=== PATIENT | female | born 1990 | race Caucasian/White ===

== ENCOUNTER 2017-03-25 16:18 | Emergency (ER) | payer MEDICAID, OTHER ==
[~2017-03-25] VITALS: Ht 157.5 cm; Wt 48.0 kg
[2017-03-25] MEDS ORDERED: ALBU0.63 NEB (16:31)
[2017-03-25] MEDS ORDERED: FLUT1DIS IH (16:31)
[2017-03-25] MEDS ORDERED: HCTZ (16:31)
[2017-03-25] MEDS ORDERED: LISI2.5T PO (16:31)
[2017-03-25] MEDS ORDERED: LORazepam 1MG TABLET ONE (16:56)
[2017-03-25] MEDS ORDERED: LORazepam 1MG TABLET PO ONE (17:00)
[2017-03-25 18:53] VITALS: BP 156/111
== END 2017-03-25 18:57 | disposition home or self-care (01) ==
LOC: ED 17:45
DX: I10 Essential (primary) hypertension (principal); F15.10 Other stimulant abuse, uncomplicated; G43.909 Migraine, unspecified, not intractable, without status migrainosus
CPT/HCPCS: 36415; 80047; 84484; 93005; 99285

== ENCOUNTER 2017-05-20 20:55 | Emergency (ER) | payer MEDICAID ==
[~2017-05-20 20:55] MED LIST: ALBU0.63 NEB; FLUT1DIS IH; HCTZ; LISI2.5T PO
[2017-05-20] MEDS ORDERED: CAPTOPRIL 50 MG TABLET PO ONE (22:00)
[2017-05-20] MEDS ORDERED: LABETALOL 5MG/ML, 20ML IVPush ONE (22:00)
[2017-05-20 22:39] VITALS: BP 191/119
== END 2017-05-20 22:43 | disposition home or self-care (01) ==
LOC: ED 20:57
DX: I10 Essential (primary) hypertension (principal); F15.20 Other stimulant dependence, uncomplicated; Z91.14 Patient's other noncompliance with medication regimen; G89.29 Other chronic pain; M54.9 Dorsalgia, unspecified; F17.210 Nicotine dependence, cigarettes, uncomplicated; G43.909 Migraine, unspecified, not intractable, without status migrainosus
CPT/HCPCS: 36415; 80047; 93005; 99285

== ENCOUNTER 2017-07-18 16:49 | Inpatient (IN) | payer MEDICAID ==
[~2017-07-18] VITALS: Ht 157.5 cm; Wt 51.5 kg
[2017-07-18] MEDS ORDERED: SODIUM CHLORIDE FLUSH 10ML SYR IVF ONE (18:00)
[2017-07-18] MEDS ORDERED: SODIUM CHLORIDE 0.9% 1,000ML IVBOLUS ONE ×2 (18:00→19:00)
[2017-07-18] MEDS ORDERED: KETOROLAC 30 MG/1 ML IVPush ONE (18:00)
[2017-07-18] MEDS ORDERED: KETOROLAC 30 MG/1 ML ONE ×2 (18:00→20:17)
[2017-07-18 18:21] LABS: HEMATOCRIT 36.6 % (34.6-47.8); HEMOGLOBIN 12.4 g/dL (11.7-16.4); WHITE BLOOD COUNT 19.2 x10^3/uL (3.4-10)
[2017-07-18 18:31] LABS: BLOOD UREA NITROGEN 8 mg/dL (7-18)
[2017-07-18 19:12] LABS: DIFF TOTAL CELLS COUNTED 100 CELL DIFF
[2017-07-18 19:14] LABS: VERIFY COUNTS? YES
[2017-07-18] MEDS ORDERED: LEVOFLOXACIN/PMX 750MG/150ML 150 ML IV ONE (19:30)
[2017-07-18] MEDS ORDERED: LEVOFLOXACIN/PMX 750MG/150ML 150 ML ONE (19:31)
[2017-07-18] MEDS ORDERED: GUAIFENESIN/DM 200-20MG, 10ML UDC PO PRN (20:00)
[2017-07-18] MEDS ORDERED: ACETAMINOPHEN 325 MG TABLET PO PRN (20:00)
[2017-07-18] MEDS ORDERED: BISACODYL 10 MG SUPP PR PRN (20:00)
[2017-07-18] MEDS ORDERED: POLYETHYLENE GLYCOL 17 GM PACKET PO PRN (20:00)
[2017-07-18] MEDS ORDERED: LEVOFLOXACIN/PMX 750MG/150ML 150 ML IV SCH (20:00)
[2017-07-18] MEDS ORDERED: ONDANSETRON 2MG/ML, 2ML IVPush PRN (20:00)
[2017-07-18 20:15] LABS: HIV 1&2 ANTIBODY SCREEN Nonreactive (Nonreactive); HIV-1 p24 ANTIGEN Nonreactive (Nonreactive)
[2017-07-18] MEDS ORDERED: NICOTINE 21 MG/24 HR PATCH.TD24 ONE (20:17)
[2017-07-18] MEDS: KETOROLAC 30 MG/1 ML IVPush SCH (20:20)
[2017-07-18] MEDS: NICOTINE 14MG/24 HR PATCH.TD24 TD SCH (20:20)
[2017-07-18] MEDS: NS + 20MEQ KCL 1,000 ML IV SCH (22:20)
[2017-07-18] MEDS: HEPARIN 5,000 UNITS/ML, 1ML SQ SCH (22:24)
[2017-07-18 22:58] VITALS: BP 132/89
[2017-07-19] VITALS (9 sets, daily range): BP systolic 139–170; BP diastolic 92–127
[2017-07-19 01:25] LABS: RAPID INFLUENZA A Negative (Negative); RAPID INFLUENZA B Negative (Negative)
[2017-07-19 02:18] LABS: DAU SCREEN DISCLAIMER
[2017-07-19] MEDS: KETOROLAC 30 MG/1 ML IVPush SCH ×4 (02:51→20:06)
[2017-07-19 05:29] LABS: ASPARTATE AMINO TRANSFERASE 15 U/L (15-37); BLOOD UREA NITROGEN 8 mg/dL (7-18); HEMATOCRIT 34.4 % (34.6-47.8); HEMOGLOBIN 11.8 g/dL (11.7-16.4); WHITE BLOOD COUNT 19.1 x10^3/uL (3.4-10)
[2017-07-19] MEDS: ALBUTEROL SULFATE 2.5 MG/3 ML NPPB PRN ×2 (05:40→09:15)
[2017-07-19] MEDS ORDERED: OMNIPAQUE 350 MG/ML, 100ML BOTTLE ONE (05:43)
[2017-07-19] MEDS: NS + 20MEQ KCL 1,000 ML IV SCH ×3 (06:20→23:28)
[2017-07-19] MEDS: HEPARIN 5,000 UNITS/ML, 1ML SQ SCH ×3 (06:23→23:27)
[2017-07-19 06:50] LABS: DIFF TOTAL CELLS COUNTED 100 CELL DIFF
[2017-07-19 06:51] LABS: VERIFY COUNTS? YES
[2017-07-19 06:52] LABS: ANISOCYTOSIS 1+
[2017-07-19] MEDS: SENNA/DOCUSATE TABLET PO SCH (08:48)
[2017-07-19] MEDS: LABETALOL 5MG/ML, 20ML IVPush PRN ×2 (11:25→18:34)
[2017-07-19] MEDS ORDERED: POTASSIUM CHLORIDE 20 MEQ TAB.ER.PRT PO ONE (13:00)
[2017-07-19] MEDS: HYDROcodone/APAP 5/325 TABLET PO PRN (18:34)
[2017-07-19] MEDS: LEVOFLOXACIN/PMX 750MG/150ML 150 ML IV SCH (20:05)
[2017-07-19] MEDS: NICOTINE 14MG/24 HR PATCH.TD24 TD SCH (20:06)
[2017-07-19] MEDS: ENALAPRILAT 1.25 MG/ML, 2ML IV PRN (23:36)
[2017-07-20] VITALS (12 sets, daily range): BP systolic 132–169; BP diastolic 96–124
[2017-07-20] MEDS: LABETALOL 5MG/ML, 20ML IVPush PRN (00:26)
[2017-07-20] MEDS: KETOROLAC 30 MG/1 ML IVPush SCH ×4 (03:28→20:34)
[2017-07-20] MEDS: hydrALAzine 20 MG/ML, 1ML IV PRN ×3 (03:28→20:43)
[2017-07-20] MEDS: ALBUTEROL SULFATE 2.5 MG/3 ML NPPB PRN (04:25)
[2017-07-20 05:36] LABS: ASPARTATE AMINO TRANSFERASE 15 U/L (15-37); BLOOD UREA NITROGEN 7 mg/dL (7-18)
[2017-07-20 05:42] LABS: HEMATOCRIT 35.9 % (34.6-47.8); HEMOGLOBIN 12.2 g/dL (11.7-16.4); WHITE BLOOD COUNT 13.6 x10^3/uL (3.4-10)
[2017-07-20 06:23] LABS: DIFF TOTAL CELLS COUNTED 100 CELL DIFF
[2017-07-20 06:24] LABS: VERIFY COUNTS? YES
[2017-07-20] MEDS: HEPARIN 5,000 UNITS/ML, 1ML SQ SCH ×3 (06:42→22:21)
[2017-07-20] MEDS: HYDROcodone/APAP 5/325 TABLET PO PRN ×3 (06:45→22:15)
[2017-07-20] MEDS: LISINOPRIL 10 MG TABLET PO SCH (08:00)
[2017-07-20] MEDS: NS + 20MEQ KCL 1,000 ML IV SCH ×2 (08:00→15:10)
[2017-07-20] MEDS: HYDROCHLOROTHIAZIDE 12.5 MG CAPSULE PO SCH (08:01)
[2017-07-20] MEDS: SENNA/DOCUSATE TABLET PO SCH (08:01)
[2017-07-20] MEDS: NICOTINE 14MG/24 HR PATCH.TD24 TD SCH (20:35)
[2017-07-20] MEDS: LEVOFLOXACIN/PMX 750MG/150ML 150 ML IV SCH (20:35)
[2017-07-20] MEDS: ENALAPRILAT 1.25 MG/ML, 2ML IV PRN (22:15)
[2017-07-21] VITALS (7 sets, daily range): BP systolic 140–167; BP diastolic 82–106
[2017-07-21] MEDS: KETOROLAC 30 MG/1 ML IVPush SCH ×4 (02:52→20:10)
[2017-07-21] MEDS: hydrALAzine 20 MG/ML, 1ML IV PRN ×2 (03:00→20:21)
[2017-07-21 05:13] LABS: HEMATOCRIT 40.3 % (34.6-47.8); HEMOGLOBIN 13.9 g/dL (11.7-16.4); WHITE BLOOD COUNT 10.7 x10^3/uL (3.4-10)
[2017-07-21 06:20] LABS: DIFF TOTAL CELLS COUNTED 100 CELL DIFF
[2017-07-21 06:22] LABS: VERIFY COUNTS? YES
[2017-07-21] MEDS: NS + 20MEQ KCL 1,000 ML IV SCH ×3 (06:32→23:12)
[2017-07-21] MEDS: HEPARIN 5,000 UNITS/ML, 1ML SQ SCH ×3 (06:32→23:12)
[2017-07-21] MEDS: HYDROcodone/APAP 5/325 TABLET PO PRN ×3 (06:37→23:12)
[2017-07-21] MEDS: HYDROCHLOROTHIAZIDE 12.5 MG CAPSULE PO SCH (09:59)
[2017-07-21] MEDS: LISINOPRIL 10 MG TABLET PO SCH (10:00)
[2017-07-21] MEDS: SENNA/DOCUSATE TABLET PO SCH (10:00)
[2017-07-21] MEDS: LEVOFLOXACIN/PMX 750MG/150ML 150 ML IV SCH (20:11)
[2017-07-21] MEDS: NICOTINE 14MG/24 HR PATCH.TD24 TD SCH (20:11)
[2017-07-22 02:26] VITALS: BP 140/94
[2017-07-22] MEDS: KETOROLAC 30 MG/1 ML IVPush SCH ×3 (03:33→16:14)
[2017-07-22] MEDS: HYDROcodone/APAP 5/325 TABLET PO PRN (06:32)
[2017-07-22] MEDS: NS + 20MEQ KCL 1,000 ML IV SCH ×2 (06:32→15:14)
[2017-07-22] MEDS: HEPARIN 5,000 UNITS/ML, 1ML SQ SCH ×2 (06:33→15:15)
[2017-07-22 08:49] VITALS: BP 137/93
[2017-07-22] MEDS: HYDROCHLOROTHIAZIDE 12.5 MG CAPSULE PO SCH (08:53)
[2017-07-22] MEDS: LISINOPRIL 10 MG TABLET PO SCH (08:53)
[2017-07-22] MEDS: SENNA/DOCUSATE TABLET PO SCH (08:53)
[2017-07-22] MEDS ORDERED: LEVO750T6 PO (14:48)
[2017-07-22] MEDS ORDERED: ALBU90AE INH (14:50)
[2017-07-22] MEDS ORDERED: FLU VACC QS2017-18 (36MOS+) UP/PF 0.5 ML IM-VACC ONE (15:30)
[2017-07-22] MEDS ORDERED: PNEUMOCOCCAL 23 VACCINE IM-VACC ONE (15:30)
[2017-07-22 16:21] VITALS: BP 163/99
== END 2017-07-22 17:59 | disposition home or self-care (01) | DRG 871 ==
LOC: ED 18:35 → EDIP 19:16 → 4NOR 20:45
PROVIDERS: ADMIT Hospitalist; ATTEND Family Medicine
DX: A41.9 Sepsis, unspecified organism (principal); E43 Unspecified severe protein-calorie malnutrition; E87.2 Acidosis; I38 Endocarditis, valve unspecified; J18.9 Pneumonia, unspecified organism; E87.1 Hypo-osmolality and hyponatremia; R73.9 Hyperglycemia, unspecified; Z68.20 Body mass index [BMI] 20.0-20.9, adult; E87.6 Hypokalemia; F11.10 Opioid abuse, uncomplicated; F15.10 Other stimulant abuse, uncomplicated; F17.210 Nicotine dependence, cigarettes, uncomplicated; I10 Essential (primary) hypertension; J45.909 Unspecified asthma, uncomplicated; R65.20 Severe sepsis without septic shock; Z59.0 Homelessness; Z82.49 Family history of ischemic heart disease and other diseases of the circulatory system; Z82.5 Family history of asthma and other chronic lower respiratory diseases; Z88.0 Allergy status to penicillin; Z88.2 Allergy status to sulfonamides; Z23 Encounter for immunization; Z88.8 Allergy status to other drugs, medicaments and biological substances
CPT/HCPCS: 36415; 71020; 71275; 80048; 80053; 80074; 80307; 82040; 83605; 84145; 85025; 85379; 86703; 87040; 87400; 87899; 90686; 90732; 93005; 93306; 94640; 96365; 96375; J1644; J1885; J1956; J3480; J7613; Q9967; G0435; G0479; J0360; J7030

== ENCOUNTER 2018-08-04 23:38 | Emergency (ER) | payer MEDICAID, OTHER ==
[~2018-08-04] VITALS: Ht 157.5 cm; Wt 45.0 kg
[~2018-08-04 23:38] MED LIST changes: +ALBU90AE INH; +LEVO750T6 PO
[2018-08-05] MEDS ORDERED: HYDROCHLOROTHIAZIDE 25 MG TABLET PO ONE
[2018-08-05] MEDS ORDERED: LISINOPRIL 20 MG TABLET PO ONE
[2018-08-05] MEDS ORDERED: LISINOPRIL 20 MG TABLET ONE (00:05)
[2018-08-05 00:34] LABS: ANION GAP 5 mmol/L (5-15); CALCIUM 8.4 mg/dL (8.5-10.1); CHLORIDE 106 mmol/L (98-107); CREATININE 0.87 mg/dL (0.55-1.02)
[2018-08-05 00:47] VITALS: BP 180/133
== END 2018-08-05 00:58 | disposition home or self-care (01) ==
LOC: ED 23:49
DX: F11.20 Opioid dependence, uncomplicated (principal); F15.20 Other stimulant dependence, uncomplicated; I10 Essential (primary) hypertension; Z72.9 Problem related to lifestyle, unspecified; Z00.01 Encounter for general adult medical examination with abnormal findings; J45.909 Unspecified asthma, uncomplicated; Z88.0 Allergy status to penicillin
CPT/HCPCS: 36415; 80048; 84703; 99283

== ENCOUNTER 2019-01-17 18:02 | Emergency (ER) | payer SELFPAY ==
[~2019-01-17] VITALS: Ht 157.5 cm; Wt 50.0 kg
--- NOTE | 2019-01-17 18:13 | NUR ---
Pt bib in custody by [facility]. Needs medical clearance for alf but has HTN. Pt states she has hx of HTN that she is non-compliant w/ meds for. Denies CP, SOB, SHEETS or dizziness.
--- NOTE | 2019-01-17 18:33 | NUR ---
Remains asymptomatic: no CP,no SHEETS, no dizziness, no SOB. Medically cleared for prison. Patient given discharge instructions and they have confirmed that they understand the instructions. Patient ambulatory with steady gait in [facility] custody.
[2019-01-17 18:34] VITALS: BP 193/130
== END 2019-01-17 18:38 | disposition home or self-care (01) ==
LOC: ED 18:32
DX: F15.129 Other stimulant abuse with intoxication, unspecified (principal); I10 Essential (primary) hypertension; F17.200 Nicotine dependence, unspecified, uncomplicated
CPT/HCPCS: 99283